=== PATIENT | male | born 1965 | race Caucasian/White ===

== ENCOUNTER 2017-01-07 17:57 | Emergency (ER) | payer OTHER ==
[2017-01-07] MEDS ORDERED: TORADOL IM ONE (18:33)
[2017-01-07] MEDS ORDERED: PHENERGAN IM ONE (18:33)
--- NOTE | 2017-01-07 19:04 | PROVIDER DOCUMENTATION ---
Addendum entered and electronically signed by Emilia Fuchs Scribe 01/07/17 19:56: Additional Progress - ADDITIONAL CT/MRI CT Study #3: Renal Stone Impression: Abnormal (8mm proximal ureteral stone with moderate hydronephrosis, other renal stones, no bowel obstruction, normal appendix, no abscess) CT Results: cholelithiasis,hepatomegaly w/ fatty infiltration, mild splenomegaly Original Note: HPI-Male Problem - General Source: patient - History of Present Illness-Male Location of Complaint: reports: generalized flank Radiation: reports: none Quality of Pain: reports: aching, pressure Severity in ED: reports: severe Onset/Duration: reports: this evening Timing: reports: still present Context/Activities at Onset: reports: none Urinary Symptoms: reports: hematuria, low back pain Associated Symptoms: reports: back/neck pain <Emilia Fuchs - Last Filed: 01/07/17 19:42> <Jason Sommers - Last Filed: 01/07/17 19:48> - General Chief Complaint: Flank Pain Stated Complaint: ABD PAIN Time Seen by Provider: 01/07/17 18:28 Allergies/Adverse Reactions: Patient Allergies Allergy/AdvReac Type Severity Reaction Status Date / Time Penicillins AdvReac HIVES Verified 01/07/17 18:24 Home Medications: Home Medication List Medication Instructions Recorded Confirmed Last Taken Type Acetaminophen with Codeine 1 each PO Q6H PRN PRN #30 tablet 01/07/17 Unknown Rx [Tylenol with Codeine #3 Tablet] Promethazine [Phenergan] 1 - 2 tab PO Q6H PRN PRN #18 tablet 01/07/17 Unknown Rx - History of Present Illness-Male Nature of Presenting Problem: 51 Y/O M presents to ED with Flank Pain. Pt states that he has a history of kidney stones, states he passed 2 kidney stones today, in extreme pain. States has diabetes and HTN. (Emilia Fuchs) Review of Systems - Adult - REVIEW OF SYSTEMS - ADULT Constitutional: denies: chills, fever Eyes: reports: no symptoms reported Ears, Nose, Mouth & Throat: reports: no symptoms reported Cardiovascular: reports: no symptoms reported Respiratory: reports: no symptoms reported Gastrointestinal: reports: vomiting. denies: diarrhea Genitourinary: reports: flank pain, hematuria Musculoskeletal: reports: no symptoms reported Integumentary: reports: no symptoms reported Neurological: reports: no symptoms reported Psychiatric: reports: no symptoms reported Endocrine: reports: no symptoms reported Hematologic/Lymphatic: reports: no symptoms reported Allergic/Immunologic: reports: no symptoms reported All Other Systems: Reviewed and Negative <JefEmilia - Last Filed: 01/07/17 19:42> Past History - Adult - PAST MEDICAL HISTORY-ADULT Review of Records: reports: Old Records Reviewed, Nursing Assessment Review, Medications Reviewed, Social history reviewed & non-contributory. - SOCIAL HISTORY Smoking: cigarettes, greater than 1 pack/day Living Situation: family <[place] - Last Filed: 01/07/17 19:42> Physical Exam-General - PHYSICAL EXAM-ADULT Initial Vital Signs Reviewed: Yes - CONSTITUTIONAL General Appearance: alert, moderate distress. negative: appears well - EYES Eyes: PERRL/EOMI, pink conjunctivae, fundi clear, no AV nicking - HEAD, EARS, NOSE, MOUTH & THROAT HENMT: normocephalic/atraumatic, moist mucous membranes, normal ENT inspection, TMs normal, pharynx normal - NECK Neck: non-tender, full range of motion, supple, normal inspection - RESPIRATORY Respiratory: chest non-tender, lungs clear, normal breath sounds - CARDIOVASCULAR Cardiovascular: normal peripheral pulses, regular rate, rhythm - GASTROINTESTINAL (ABDOMEN) Abdominal Exam: normal bowel sounds, non tender, soft - MUSCULOSKELETAL Back Exam: CVA tenderness Extremity: normal range of motion, non-tender - SKIN Integumentary: normal color, normal turgor, warm/dry - NEUROLOGIC Neurologic: internet assessor II-XII nml as tested - PSYCHIATRIC Psych/Mental Status: normal mood/affect, normal thought content, normal thought process, oriented x 3 <[place] h[place] - Last Filed: 01/07/17 19:42> Progress - CT/MRI 1 CT Study: Renal Stone Impression: Abnormal <Emilia Fuchs - Last Filed: 01/07/17 19:42> <Jason Sommers - Last Filed: 01/07/17 19:48> - PLAN OF CARE/RESULTS Progress/Plan/Lab Results: Laboratory Tests 01/07/17 19:05 Urine Source VOIDED Urine Color YELLOW Urine Clarity SL. CLOUDY A Urine pH 5.0 Ur Specific Hagerman 1.020 Urine Protein TRACE A Urine Ketones 1+(Small) A Urine Blood 2+ A Urine Nitrite NEGATIVE Urine Bilirubin NEGATIVE Urine Urobilinogen NORMAL Urine Microscopic RBC <10 Urine WBC NEGATIVE Ur Epithelial Cells <10 Urine Crystals TRIPLE PHOS PRESENT Urine Glucose 2+(250 mg/dL) A Orders Category Date Time Status RENAL STONE SEARCH [CT] Stat Exams 01/07/17 18:[address] W/POSS RFLX CULT [URINALYSIS] Stat Lab 01/07/17 19:05 Completed Ketorolac [Toradol] Med 01/07/17 18:33 Discontinued 60 mg IM NOW ONE Promethazine [Phenergan] Med 01/07/17 18:33 Discontinued 25 mg IM NOW ONE Vital Signs - 24 hr 01/07/17 18:21 Temperature 98 F Pulse Rate 106 H Respiratory 19 Rate Blood Pressure 159/94 O2 Sat by Pulse 98 Oximetry (Emilia Fuchs) Departure - Departure Time of Disposition Order: 19:42 Certified Medical Emergency: Emergent <Emilia Fuchs - Last Filed: 01/07/17 19:42> - Departure Time of Disposition Order: 19:47 <Jason Sommers - Last Filed: 01/07/17 19:48> - Departure Prescriptions: Acetaminophen with Codeine [Tylenol with Codeine #3 Tablet] 1 each PO Q6H PRN PRN #30 tablet PRN Reason: Pain Promethazine [Phenergan] 1 - 2 tab PO Q6H PRN PRN #18 tablet PRN Reason: Vomiting Referrals: Pantera Lutz [Primary Care Provider] - Attestation - Scribe Verification/Attestation Scribe:: Emilia Fuchs Acting as Scribe for:: Jason Sommers Scribe documention review:: This chart was documented by a scribe and accurately reflects the service the provider performed and the decisions made by the provider. <Emilia Fuchs - Last Filed: 01/07/17 19:42> Physician Attestation
[2017-01-07 19:11] LABS: URINE CULTURE PL NEEDED? NO; URINE SOURCE VOIDED
[2017-01-07 19:34] LABS: BILIRUBIN URINE NEGATIVE (NEGATIVE); BLOOD URINE 2+ (NEGATIVE); CLARITY SL. CLOUDY (CLEAR); COLOR YELLOW; LEUKOCYTES URINE NEGATIVE (NEGATIVE); NITRITE URINE NEGATIVE (NEGATIVE); PROTEIN URINE TRACE mg/dL (NEGATIVE); UROBILINOGEN URINE NORMAL
[2017-01-07 19:41] LABS: URINE CRYSTAL TRIPLE PHOS PRESENT /HPF; URINE EPITHELIAL CELLS <10 /HPF (<10); URINE RBC <10 /HPF (<10)
[2017-01-07 20:01] VITALS: BP 144/83
--- NOTE | 2017-01-08 08:47 | Diag Imaging Result Document ---
PROCEDURE NAME: RENAL STONE SEARCH - 01/07/2017 CT ABDOMEN PELVIS, 01/07/2017: A CT dose reduction protocol was used. COMPARISON: Ultrasound abdomen complete 02/28/2011. FINDINGS: There is an 8.4-mm left proximal ureter stone causing severe left hydronephrosis. There is a very large stone in the lower pole of the left kidney measuring 2.1 x 1.6 cm. There is also a rather large right renal stone measuring about 7 mm. There is severe fatty change of the liver. There are numerous calcified gallstones in the gallbladder. No gallbladder distention or inflammation. No bowel obstruction or inflammation. Normal appendix. Moderate degenerative changes throughout the thoracolumbar spine. No acute bony lesions. IMPRESSION: 1. Large obstructing left proximal ureter stone with severe hydronephrosis. 2. Bilateral nephrolithiasis. 3. Cholelithiasis. 4. Fatty liver. [facility]
== END 2017-01-07 20:01 | disposition home or self-care (01) ==
LOC: P.ED 17:57
DX: N13.2 Hydronephrosis with renal and ureteral calculous obstruction (principal); M54.5 Low back pain; R31.9 Hematuria, unspecified; R10.9 Unspecified abdominal pain; R11.10 Vomiting, unspecified; I10 Essential (primary) hypertension; E11.9 Type 2 diabetes mellitus without complications; F17.210 Nicotine dependence, cigarettes, uncomplicated; Z87.442 Personal history of urinary calculi
CPT/HCPCS: 74176; 81001; J1885; J2550